=== PATIENT | male | born 2005 | race Two or more races ===

== ENCOUNTER 2025-01-31 06:38 | Day surgery (SDC) | payer OTHER ==
[2025-01-25 13:41] LABS: Urine Bacteria None Seen /hpf (None Seen)
[2025-01-25 13:44] LABS: Basophils # (auto) 0 10 ^3/uL (0-0.2); Basophils % (auto) 0.5 % (0.0-2.0); Eosinophils # (auto) 0.2 10 ^3/uL (0-0.8); Eosinophils % (auto) 3.4 % (0.0-7.0); Hematocrit 43.5 % (41.0-53.0); Hemoglobin 14.8 g/dL (13.5-17.5); Lymphocytes # (auto) 2.9 10 ^3/uL (0.4-5.4); Lymphocytes % (auto) 40.2 % (10.0-50.0); Mean Corpuscular Hemoglobin 28.1 pg (28.0-32.0); Mean Corpuscular Hgb Conc. 34.1 g/dL (32.0-36.0); Mean Corpuscular Volume 82.5 fL (80.0-100.0); Monocytes # (auto) 0.6 10 ^3/uL (0-1.3); Monocytes % (auto) 7.9 % (0.0-12.0); Neutrophils # (auto) 3.5 10 ^3/uL (1.6-8.6); Nucleated Red Blood Cells % 0.2 %; Platelet Count (auto) 213 10^3/uL (140-450); Red Blood Cells 5.28 10^6/uL (4.5-5.90); Red Cell Distribution Width 13.6 % (11.8-14.3); White Blood Cell 7.2 10^3/uL (4.4-10.8)
[2025-01-25 13:58] LABS: INR 1.09 (0.9-1.15); Partial Thromboplastin Time 33.4 SEC (24.5-34.5); Prothrombin Time 11.5 sec (9.3-11.8)
[2025-01-25 14:10] LABS: Urine Blood Negative /uL (Negative); Urine Clarity Clear (Clear); Urine Color Light-Yellow (Yellow); Urine Protein, UAD Negative (Negative); Urine Specific Gravity 1.019 (1.001-1.035); Urine Squamous Epithelial Cell FEW /hpf (<5); Urine Urobilinogen Normal (Negative); Urine WBC 1 /HPF (0-3)
[2025-01-25 14:21] LABS: Alkaline Phosphatase 99 U/L (46-116); Anion Gap 9 (5-15); Aspartate Aminotransferase 30 U/L (13-40); BUN/Creatinine Ratio 14.7 (10.0-20.0); Blood Urea Nitrogen 15 mg/dL (9-23); Calcium 9.6 mg/dL (8.7-10.4); Carbon Dioxide 26 mmol/L (20-31); Chloride 106 mmol/L (98-107); Glucose 91 mg/dL (74-106); Potassium 3.8 mmol/L (3.5-5.1); Sodium 141 mmol/L (136-145); Total Protein 7.3 g/dL (5.7-8.2)
[2025-01-25 14:22] LABS: Bilirubin, Total 0.3 mg/dL (0.2-1.0)
[2025-01-25 14:23] LABS: Alanine Aminotransferase 43 U/L (7-40); Albumin 4.9 g/dL (3.2-4.8)
[~2025-01-31] VITALS: Ht 182.9 cm; Wt 91.6 kg
[2025-01-31] MEDS ORDERED: SUCCINYLCHOLINE CHLORIDE 20 MG/ML 10ML VIAL IV ONE (06:56)
[2025-01-31] MEDS ORDERED: BUPIVACAINE HCL 50 ML ONE (06:59)
[2025-01-31] MEDS ORDERED: ROPIVACAINE 0.5% (5MG/ML) 20ML AMPULE IJ ONE (07:03)
[2025-01-31] MEDS ORDERED: fentaNYL CITRATE 100 MCG/2 ML VL ONE (07:04)
[2025-01-31] MEDS ORDERED: PROPOFOL 10 MG/ML 20 ML IV ONE (07:04)
[2025-01-31] MEDS ORDERED: LIDOCAINE 1% INJ PF 5ML AMP ONE (07:22)
[2025-01-31] MEDS ORDERED: EPINEPHrine HCL 1 MG/1 ML AMP ONE (07:28)
[2025-01-31] MEDS ORDERED: DexAMETHasone SOD PHOS 10MG/1ML VIAL INJ ONE (08:34)
[2025-01-31] MEDS ORDERED: ROCURONIUM 10MG/ML 10ML VIAL IV ONE (08:34)
[2025-01-31] MEDS ORDERED: ONDANSETRON HCL 4 MG/2 ML VIAL ONE (08:34)
[2025-01-31] MEDS: ceFAZolin 2 GM/D5W100ml 100 ML IV ONE (08:40)
[2025-01-31 10:19] VITALS: PULSE 84; RESP 10; TEMP 97.8; O2SAT 100
[2025-01-31] MEDS ORDERED: MEPERIDINE HCL (25 MG/ML) 1ML VIAL IV PRN (10:30)
[2025-01-31] MEDS ORDERED: ACETAMINOPHEN IV 1000 MG/100ML (10MG/ML) IV PRN (10:30)
[2025-01-31] MEDS ORDERED: ONDANSETRON HCL 4 MG/2 ML VIAL IV ONE (10:30)
[2025-01-31] MEDS ORDERED: HYDROmorphone HCL 2 MG/ML VL/or syr IV PRN (10:30)
[2025-01-31 11:30] VITALS: BP 146/67; PULSE 64; RESP 12; O2SAT 97
--- NOTE | 2025-01-31 17:27 | DVHOP ---
DATE OF SURGERY: 01/31/2025 PREOPERATIVE DIAGNOSIS: Left shoulder anterior labral tear. POSTOPERATIVE DIAGNOSIS: Left shoulder anterior and posterior labral tear. PROCEDURE PERFORMED: Left shoulder arthroscopy with anterior and posterior labral repair. ANESTHESIA: General with interscalene block. COMPLICATIONS: None. BLOOD LOSS: Minimal. IMPLANTS USED: Arthrex FiberTak knotless x5. INDICATIONS FOR PROCEDURE: The patient is a 19-year-old male who presented to the clinic with a history of left shoulder pain and instability. Clinical and radiologic evaluation demonstrated anterior labral tear. Nonoperative and operative management options were discussed. Surgery in the form of shoulder arthroscopy with labral repair was indicated. Benefits, risks, and treatment alternatives were discussed. Specific complications of the surgery such as neurovascular injury, infection, arthrofibrosis, loss of limb or life were discussed. He decided to proceed with the surgical option. PROCEDURE IN DETAIL: The patient was identified in the preoperative holding area and the surgical site was marked. The consent was verified. He was brought into the operating room and placed supine on the operating table. General anesthesia was administered. Intravenous antibiotics were given. He was moved to the lateral position. The beanbag was deflated. Axillary roll was placed. All the bony prominences were appropriately padded. The extremity was prepped and draped in the usual sterile manner. A timeout was called out to confirm the identity of the patient, the nature of surgery, the site of surgery, availability of implants and allergies to medications. The shoulder was examined under anesthesia and was found to have an anterior dislocation. Posterior instability was also noted. Posterior portal was established. A 30-degree scope was inserted. Anterior portal was established, a probe was inserted and the findings were as follows. * Complete anterior labral tear with attrition of tissue. * Posterior labral tear. * Minimal anterior bone loss less than 10%. * Posterior superior labral tear. * Chondromalacia glenoid anteriorly. * Intact rotator cuff. * Intact biceps tendon. Based on these findings, I decided to repair the anterior labrum. The scope was inserted in the anterior portal to evaluate the labral tissue. This was noted to be poor quality and missing labral tissue. The scope was now inserted into the posterior portal again. The anterior labrum was elevated off the glenoid. Significant scar tissue was noted. Anteroinferior and anterosuperior portal was created. The anterosuperior portal had a cannula. The inferior portal was percutaneous. A drill guide was then inserted through the inferior portal. This was a curved drill guide. The drill was inserted. The anchor was now inserted. The anchor was deployed. This was a knotless anchor. A curved lasso suture was inserted through the inferior portal. Because the labral tissue was absent, a portion of the inferior glenoid humeral ligament was taken. This was retrieved through the superior portal. The loop suture was now retrieved through the superior portal as well. The repair stitch was now inserted into the loop and the suture was found around the labrum. Excellent fixation was noted. Similar steps were repeated for 2 more anchors and the inferior glenohumeral ligament was plicated to the anterior labrum. Excellent fixation was noted of the anterior labrum and the capsule. Capsulorrhaphy and capsular shift was performed. The scope was then inserted into the anterior portal. Posterior labral tear was evaluated. This was an extensive tear up to the superior labrum. I decided to repair this with 2 anchors. One anchor was inserted in the 5 o'clock position and the other in the 2 o'clock position. An additional portal was created for this. This was a 7 o'clock portal. This was percutaneously created carefully. A spinal needle was inserted. A small incision was made over the skin only. Next, a hemostat was inserted all the way through the infraspinatus and the capsule to the labrum. A curved drill guide was inserted. Drill was inserted and the anchor was deployed. Next, similar steps were repeated for the knotless all-suture anchor with the repair stitch around the labrum for excellent fixation. The repair was complete. Irrigation was given. Skin incisions were closed with 3-0 nylon. Sterile dressing was applied. DISPOSITION: Good, the patient was extubated and taken to the recovery without any complications. PLAN: To stay in the brace at all times except for shower. Follow up in 2 weeks. We will initiate physical therapy at that time. MD MARTA Hayden/BRENDA/SARAH TID: [id number] RECEIPT: [id number]
[2025-01-31] MEDS ORDERED: CEPH500C PO (20:01)
[2025-01-31] MEDS ORDERED: ASPI1TAB20 PO (20:01)
[2025-01-31] MEDS ORDERED: HYDR-4902 PO (20:01)
== END 2025-01-31 12:00 | disposition home or self-care (01) ==
LOC: SUR 06:38
PROVIDERS: ATTEND Orthopaedic Surgery Sports Medicine
DX: S43.432A Superior glenoid labrum lesion of left shoulder, initial encounter (principal); S43.492A Other sprain of left shoulder joint, initial encounter; M94.212 Chondromalacia, left shoulder; G89.18 Other acute postprocedural pain; Z79.82 Long term (current) use of aspirin; Z79.899 Other long term (current) drug therapy; X58.XXXA Exposure to other specified factors, initial encounter; Y93.89 Activity, other specified; Y92.89 Other specified places as the place of occurrence of the external cause; Y99.8 Other external cause status
CPT/HCPCS: 29806; 36415; 64415; 80053; 81001; 85025; 85610; 85730; C1713; J0171; J0330; J1100; J2405; J2704; J2795; J3010; J3490; A4565